=== PATIENT | female | born 1960 | race Caucasian/White ===

== ENCOUNTER 2017-08-04 05:03 | Day surgery (SDC) | payer BC, OTHER ==
[~2017-08-04] VITALS: Ht 170.2 cm; Wt 68.0 kg
--- NOTE | ~2017-08-04 | H ---
[facility] [place] [address] HISTORY AND PHYSICAL Name: EVERTON OCAMPO Room #: 150-2 [facility].#: [id number] Admission: 08/04/17 Attend Phys: Bakari Quesada MD Discharge: Date of : 60 Report #: [id number] THIS REPORT FOR: //name// CC: FAM unknown Bakari Quesada DATE OF PROCEDURE: 08/04/2017 HISTORY OF PRESENT ILLNESS: The patient has been having sinus problems. 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 Over the last couple of years, she has had intermittent tooth pain on the upper left side. A dentist thought that she was having sinus problems. CT scan showed a very significant left maxillary sinusitis with mucous membrane thickening in the left ethmoid sinuses as well and debride in the sinus with calcifications consistent with allergic fungal sinusitis. PAST MEDICAL HISTORY: Otherwise, not significant. MEDICATIONS: She is on no medications on a regular basis. ALLERGIES: She is allergic to CECLOR. PHYSICAL EXAMINATION: She has a deviated nasal septum to the left side, especially anteriorly along the floor. Her oropharynx and oral cavity were clear. She had no adenopathy or masses in her neck. IMPRESSION: Deviated nasal septum with left maxillary and ethmoid sinusitis. PLAN: Nasal septoplasty, endoscopic left maxillary antrostomy, and anterior ethmoidectomy. <ELECTRONICALLY SIGNED> By: Bakari Quesada MD 08/04/17 0848 [id number] Bakari Quesada MD /nt
--- NOTE | ~2017-08-04 | O ---
[facility] [place] [address] OPERATIVE REPORT Name: EVERTON OCAMPO Room #: DEP [facility].#: [id number] Admission: 08/04/17 Attend Phys: Bakari Quesada MD Discharge: 08/04/17 Date of : 60 Report #: [id number] THIS REPORT FOR: //name// CC: FAM unknown Bakrai Quesada DATE OF SERVICE: 08/04/2017 PREOPERATIVE DIAGNOSES: Deviated nasal septum with nasal airway obstruction, chronic maxillary and ethmoid sinusitis. POSTOPERATIVE DIAGNOSES: Deviated nasal septum with nasal airway obstruction, chronic maxillary and ethmoid sinusitis. OPERATIVE PROCEDURE: Nasal septoplasty, endoscopic left maxillary antrostomy and anterior ethmoidectomy with removal of fungus ball. ANESTHESIA: General by laryngeal mask. DESCRIPTION OF PROCEDURE: The patient was taken to the operating room and placed in supine position. General anesthesia was induced by laryngeal mask. Once adequate general anesthesia was obtained, local nasal anesthesia was induced by submucoperichondrial injection of 1% lidocaine with 1:100,000 epinephrine and topical application of cocaine solution. The patient was then draped in a sterile manner. The patient had a nasal septal deviation to the left side. A hemitransfixion incision was placed on the left side of the nose and the mucoperichondrium and mucoperiosteum was elevated off of the septum. The cartilage was incised and from the bony cartilaginous junction, a portion of cartilage and bone was removed from the mid portion of the septum. There was a large septal spur along the floor that was a fracture of the maxillary crest. The maxillary crest was infractured and rongeured. After these maneuvers, the septum sat more in the midline. The hemitransfixion incision was then closed with 4-0 chromic suture and a 4-0 plain mattress sutures placed as well. The nasal endoscope was used to visualize the left nasal cavity and the middle turbinate was deviated medially. Thick purulence was draining from the middle meatus. The uncinate process was removed using the microdebrider. There was thick polypoid mucosa covering the opening to the maxillary sinus and this was removed using the microdebrider. Within the sinus, was a thick purulent as well as a large fungal ball. The fungus was removed in pieces using a curved suction. I was able completely remove all of this debris using the curved blade on the microdebrider, taking care to remove all of the polypoid mucosa anteriorly. An anterior ethmoidectomy was performed by removing the ethmoidal bulla and following the ethmoid air cells to the basal lamella. FloSeal was then instilled into the ethmoid cavity and middle meatus for hemostasis. The patient tolerated the procedure well. Blood loss approximately 50 mL. [facility] [address] [place] [address] OPERATIVE REPORT Name: EVERTON OCAMPO Room #: DEP [facility] [place]#: [id number] Admission: 08/04/17 Attend Phys: Bakari Quesada MD Discharge: 08/04/17 Date of : 60 Report #: [id number] patient was then awoken and taken to recovery room in stable condition for postoperative monitoring. By: [id number] Bakari Quesada MD /nt
[~2017-08-04 05:03] MED LIST: ASPIR-LOW81 MG PO
[2017-08-04 06:45] VITALS: BP 129/58
[2017-08-04 09:21] VITALS: BP 129/58
== END 2017-08-04 10:07 | disposition home or self-care (01) ==
LOC: OR 05:03 → TBA 05:04 → OR 09:04
DX: J34.2 Deviated nasal septum (principal); J32.0 Chronic maxillary sinusitis; J32.2 Chronic ethmoidal sinusitis
CPT/HCPCS: 50010; 50101; 50386; 50398; 51751; 56524; 56528; 56635; 62110; 62900; 64037; 70005